=== PATIENT | male | born 1965 | race Caucasian/White ===

== ENCOUNTER 2025-06-16 12:41 | Emergency (ER) | payer OTHER, SELFPAY ==
[2025-06-16] VITALS (18 sets, daily range): BP systolic 99–161; BP diastolic 64–89; PULSE 51–116; RESP 12–25; TEMP 36.3–36.4; O2SAT 95–99; BMI 30.3
--- NOTE | 2025-06-16 13:02 | EKG_ITS ---
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
--- NOTE | 2025-06-16 13:02 | DI.RAD.S_ITS ---
PROCEDURE: XR CHEST 1V INDICATIONS: Chest Pain TECHNIQUE: One view of the chest was acquired. COMPARISON: None. FINDINGS: Surgical changes and devices: None. Lungs and pleura: Lungs are clear. No pleural effusions or pneumothorax. Mediastinum: Mediastinal contours appear normal. Heart size is normal. Bones and chest wall: No suspicious bony lesions. Overlying soft tissues appear unremarkable. IMPRESSION: No acute cardiopulmonary pathology. Dictated by: Jesus Nolasco M.D. on 06/16/2025 at 13:26 Approved by: Jesus Nolasco M.D. on 06/16/2025 at 13:26
[2025-06-16 13:36] LABS: INR 1.3 (0.9-1.3); Prothrombin Time 15.2 SECONDS (9.4-12.5)
[2025-06-16 13:39] LABS: PTT Partial Thromboplastin Tim 40 SECONDS (25.1-36.5)
[2025-06-16 13:40] LABS: Alanine Aminotransferase 35 IU/L (<50); Albumin 5.1 g/dL (3.5-5.0); Albumin Globulin Ratio 1.3 (1.0-2.8); Alkaline Phosphatase 106 U/L (38-126); Blood Urea Nitrogen 22 mg/dL (9-20); Calcium 9.4 mg/dL (8.4-10.2); Carbon Dioxide 18 mmol/L (22-32); Chloride 108 mmol/L (98-107); Creatine Kinase 130 U/L (55-170); Estimated Glomerular Filt Rate > 60 mL/min (>60); Globulin 3.8 g/dL (1.7-4.1); Glucose 112 mg/dL (70-99); HEMOLYSIS < 15 (0-50); Lipase 105 U/L (23-300); Magnesium 2.0 mg/dL (1.6-2.3); Potassium 4.0 mmol/L (3.4-5.1); Sodium 140 mmol/L (137-145); Total Protein 8.9 g/dL (6.3-8.2)
[2025-06-16 13:46] LABS: Add Manual Diff / Slide Review NO; Hematocrit 47.6 % (41-53); Hemoglobin 16.9 g/dL (13.5-17.5); Lymphocytes Absolute Auto 3100 /uL (1100-4500); Mean Corpuscular HGB Conc 35.4 % (30-36); Mean Corpuscular Hemoglobin 30.9 PG (26-34); Mean Corpuscular Volume 87.2 fL (80-100); Platelet Count 230 X10^3/uL (150-400)
[2025-06-16 13:52] LABS: NT-proBNP (BNP-Adult 18+) 1150 pg/mL (<125); Troponin I < 0.012 ng/mL (0.01-0.034)
--- NOTE | 2025-06-16 18:18 | ED_ITS ---
HPI - Arrhythmia/Palpitations General Chief Complaint: Arrhythmia/Palpitations Stated Complaint: In AFIB since Yesterday Time Seen by Provider: 06/16/25 18:14 Source: patient Mode of arrival: Ambulatory History of Present Illness HPI narrative: 60-year-old male with history of atrial fibrillation for a number of years, taking diltiazem and Eliquis, no missed doses of Eliquis, including having taken this morning's dose. They bought a new coffee expressible machine, he tried to yesterday, afterwards felt like he went into atrial fibrillation, some intermittent dizziness. No chest pain or shortness of breath. Denies recent cough or shortness of breath, fevers or chills. Related Data Allergies Allergy/AdvReac Type Severity Reaction Status Date / Time Sulfa (Sulfonamide Allergy Mild Rash Verified 06/16/25 12:55 Antibiotics) Patient History Social History Smoking Status: Never smoker Smoking Status: Never smoker Exam Narrative Exam Narrative: GENERAL: Well-developed patient, in mild distress. HEAD: Atraumatic. Normocephalic. EYES: Pupils equal round and reactive. Extraocular motions intact. No scleral icterus. No injection or drainage. ENT: Nose without bleeding, purulent drainage. Throat without erythema, tonsillar hypertrophy or exudate. Airway patent. NECK: Trachea midline. Non tender CARDIOVASCULAR: Irregularly irregular rhythm, not particularly persistent fast rate, without obvious murmurs, gallops, or rubs. RESPIRATORY: Clear to auscultation. Breath sounds equal bilaterally. No wheezes, rales, or rhonchi. GASTROINTESTINAL: Abdomen soft, non-tender, nondistended. EXTREMITIES: No edema or joint tenderness. BACK: Nontender without deformity or crepitance. No flank tenderness. NEURO: AOx3. Motor functions grossly nonfocal. SKIN: No rash or erythema of visible areas Initial Vital Signs Initial Vital Signs: Vital Signs Temperature 97.4 F L 06/16/25 12:52 Pulse Rate 76 06/16/25 12:52 Respiratory Rate 18 06/16/25 12:52 Blood Pressure 161/85 H 06/16/25 12:52 Pulse Oximetry 98 06/16/25 12:52 Oxygen Delivery Method Room Air 06/16/25 12:52 Procedures Cardioversion Time of Cardioversion: 02:04 Consent Signed: Yes Indication: Recurrent/paroxysmal atrial fibrillation, on Eliquis chronic anticoagulation, request for elective cardioversion Number of attempts (shocks): 1 Joules used: 200 Cardiac rhythm post-cardioversion: Normal sinus rhythm post cardioversion, with first-degree AV block. Additional Comments: Successful cardioversion, noted on secured entrance monitor postprocedure, documented also in postprocedure EKG. Procedural Sedation Time of procedure: 20:40 Consent signed: Yes Time out performed: Yes Indication: cardioversion ASA Class: II (History of obstructive sleep apnea) Mallampati Airway Classification: Class I Time of Last PO Intake: 18:00 Preparation: secured entrance monitor applied, pulse oximeter, capnometry used, suction/airway equipment at bedside and IV secured IV Propofol dose (mg): 80 ED Sedation Level: Moderate (Concious) Patient Tolerated Procedure: Well Complications: none Additional Comments: Patient returned to preprocedure baseline mental status Course Orders Ordered: ED Orders 06/16/25 20:45 EKG-12 Lead Stat Discontinued Medications Apixaban (Apixaban 5 Mg Tablet) 5 mg PO NOW ONE Stop: 06/16/25 21:02 Last Admin: 06/16/25 21:12 Dose: 5 mg Documented By: Propofol (Propofol 200 Mg/20 Ml Vial) 200 mg IV NOW ONE Stop: 06/16/25 18:36 Last Admin: 06/16/25 20:37 Dose: 80 mg Documented By: GABBI Vital Signs Vital signs: Vital Signs - 8 hr 06/16/25 20:00 06/16/25 20:00 06/16/25 20:30 Pulse Rate 93 H 94 H Respiratory Rate 15 17 Blood Pressure 99/65 Pulse Oximetry 98 97 Oxygen Delivery Method 06/16/25 20:30 06/16/25 20:38 06/16/25 20:40 Pulse Rate 87 71 Respiratory Rate 18 14 Blood Pressure 113/71 113/71 107/69 Pulse Oximetry 98 96 Oxygen Delivery Method 06/16/25 20:40 06/16/25 20:40 06/16/25 20:45 Pulse Rate 74 72 Respiratory Rate 19 20 Blood Pressure 107/69 Pulse Oximetry 95 97 Oxygen Delivery Method 06/16/25 20:45 06/16/25 20:50 06/16/25 20:50 Pulse Rate 68 Respiratory Rate 21 Blood Pressure 105/64 101/65 Pulse Oximetry 96 Oxygen Delivery Method 06/16/25 21:00 06/16/25 21:00 06/16/25 21:15 Pulse Rate 62 Respiratory Rate 21 Blood Pressure 101/65 109/66 Pulse Oximetry 96 Oxygen Delivery Method 06/16/25 21:15 Pulse Rate 59 L Respiratory Rate 20 Blood Pressure Pulse Oximetry 97 Oxygen Delivery Method Room Air MDM - Arrhythmia/Palpitations Lab Data Attestation: I reviewed the patient's lab results. Lab results narrative: White blood cell count 10,800, hemoglobin 16.9, platelets adequate. Glucose 112. Renal function, electrolytes normal. Serum CO2 18 slight decreased. Liver functions and lipase normal. Troponin negative/ unmeasurable. BNP 1150. 06/16/25 13:10 06/16/25 13:10 Labs: Lab Results 06/16/25 Range/Units 13:10 WBC 10.8 (4.5-11.0) X10^3/uL RBC 5.46 (4.5-5.9) X10^6/uL Hgb 16.9 (13.5-17.5) g/dL Hct 47.6 (41-53) % MCV 87.2 (80-100) fL MCH 30.9 (26-34) PG MCHC 35.4 (30-36) % RDW 13.3 (11.6-14.8) % Plt Count 230 (150-400) X10^3/uL Neut % (Auto) 60.1 (50-75) % Lymph % (Auto) 28.7 (25-40) % [place] % (Auto) 6.8 (3-14) % Eos % (Auto) 2.5 (2-4) % Baso % (Auto) 1.9 (0-2) % Neut # (Auto) 6500 (1919-2094) /uL Lymph # (Auto) 3100 (6572-7249) /uL [place] # (Auto) 700 (0-900) /uL Eos # (Auto) 300 (0-450) /uL Baso # (Auto) 200 H (0-100) /uL PT 15.2 H (9.4-12.5) SECONDS INR 1.3 (0.9-1.3) APTT 40 H (25.1-36.5) SECONDS Sodium 140 (137-145) mmol/L Potassium 4.0 (3.4-5.1) mmol/L Chloride 108 H (98-107) mmol/L Carbon Dioxide 18 L (22-32) mmol/L BUN 22 H (9-20) mg/dL Creatinine 0.94 (0.66-1.25) mg/dL Estimated GFR > 60 (>60) mL/min BUN/Creatinine Ratio 23.4 H (6-22) Glucose 112 H (70-99) mg/dL Calcium 9.4 (8.4-10.2) mg/dL Magnesium 2.0 (1.6-2.3) mg/dL Total Bilirubin 0.9 (0.2-1.3) mg/dL AST 30 (17-59) IU/L ALT 35 (<50) IU/L Alkaline Phosphatase 106 (38-126) U/L Total Creatine Kinase 130 (55-170) U/L Troponin I < 0.012 (0.01-0.034) ng/mL NT-Pro-B Natriuret Pep 1150 H (<125) pg/mL Total Protein 8.9 H (6.3-8.2) g/dL Albumin 5.1 H (3.5-5.0) g/dL Globulin 3.8 (1.7-4.1) g/dL Albumin/Globulin Ratio 1.3 (1.0-2.8) Lipase 105 (23-300) U/L ECG Data Attestation: I personally reviewed and interpreted this ECG as follows: Interpretation: 1306, Atrial fibrillation with rapid ventricular response rate 105, no obvious ST segment elevation or depression changes. QRS 86, QTC 494. 2050, normal sinus rhythm with first-degree AV block, ventricular rate 70. No obvious ST segment changes. [place] 214. QRS 92, QTC 434. MDM Narrative Medical decision making narrative: 60-year-old male with history of atrial fibrillation, on Eliquis chronic anticoagulation with no missed doses, recently took dose including this morning, felt like he had gone into atrial fibrillation since yesterday when he tried to new accordion maker [employer] machine. He has had 1 cardioversion before that was successful, is interested in being cardioverted. He has no chest pain, no significant rapid response, takes diltiazem each morning. Initial EKG shows atrial fibrillation with increased ventricular response rate, on monitor patient variable rate 90-110 range, normotensive. Lab data: White blood cell count 10,800, hemoglobin 16.9, platelets adequate. Glucose 112. Renal function, electrolytes normal. Serum CO2 18 slight decreased. Liver functions and lipase normal. Troponin negative/ unmeasurable. BNP 1150. Patient request for cardioversion. Should be anticoagulated taking oral Eliquis with no missed doses. Consented for cardioversion. Prior response to propofol, will use propofol. See procedure and sedation notes. Successful cardioversion single attempt, sinus rhythm on monitor. Repeat EKG shows normal sinus rhythm. Returned to preprocedure baseline after propofol. Tolerated well. Discharged home with . Follow up with his customer service assistant advised, could consider cardiac ablation. Return precautions discussed. Critical Care Time Critical Care Time Critical Care Time: Yes Total Critical Care Time: 35 Attestation: The high probability of a clinically significant, sudden or life threatening deterioration of the [cardiovascular] system(s) required my full and direct attention, intervention and personal management. The aggregate critical care time was [35] minutes. This time is in addition to time spent performing reported procedures but includes the following: [x] Data Review and interpretation [x] Patient assessment and monitoring of vital signs [x] Documentation [x] Medication orders and management Discharge Plan Departure Patient Disposition: Home Clinical Impression: Atrial fibrillation status post cardioversion Activity Restrictions/Additional Instructions: History of atrial fibrillation, on chronic Eliquis anticoagulation without recent missed doses, taking Cardizem each morning. Sw[employer] coffee machine use yesterday, onset of atrial fibrillation irregular beat, some intermittent lightheadedness and dizziness like symptoms. Request for cardioversion, prior response to cardioversion a few years ago. No obvious contraindications. IV sedation, cardioversion single shock was successful, subsequent normal sinus rhythm with first-degree AV block not unexpected on Cardizem medication, adequate blood pressure, returned to preprocedure baseline. Continue taking your regular chronic medications. Avoid caffeine and decongestant and stimulant like medication in substances. Follow up with your cardiologists early this next week. With recurrence of your atrial fibrillation, could consider referral for cardiac ablation. Return to this/nearest emergency department for any change worsening symptoms or concerns prior. We also gave your evening oral dose of Eliquis after procedure. Referrals: Angeline Connolly MD [Physician, Cardiology] Stand Alone Forms: Patient Portal/API
--- NOTE | 2025-06-16 20:50 | EKG_ITS ---
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
--- NOTE | 2025-06-16 21:11 | PC.NURSE ---
cardioverson performed pt tolerated procedure well, without any complication at bedside
[2025-06-16] MEDS: APIXABAN 5 MG TABLET PO (21:12)
== END 2025-06-16 21:21 | disposition home or self-care (01) ==
PROVIDERS: Emergency Medicine; Emergency Provider Emergency Medicine
DX: I48.91 Unspecified atrial fibrillation (principal); Z79.01 Long term (current) use of anticoagulants
CPT/HCPCS: 36415; 71045; 80053; 82550; 83690; 83735; 83880; 84484; 85025; 85610; 85730; 92960; 93005; 99285; J2704